=== PATIENT | male | born 1995 | race African-American/Black ===

== ENCOUNTER 2018-04-05 11:35 | Inpatient (IN) | payer OTHER ==
[2018-04-05 11:48] VITALS: BMI 25.6
--- NOTE | 2018-04-05 13:03 | HP ---
CIWA Score - Admission Criteria OASAS Guidelines: Admission for Medically Managed Detox: Requires at least one of the followin. CIWA greater than 12 2. Seizures within the past 24 hours 3. Delirium tremens within the past 24 hours 4. Hallucinations within the past 24 hours 5. Acute intervention needed for co occurring medical disorder 6. Acute intervention needed for co occurring psychiatric disorder 7. Severe withdrawal that cannot be handled at a lower level of care (continued vomiting, continued diarrhea, abnormal vital signs) requiring intravenous medication and/or fluids 8. Admission ROS S - HPI Chief Complaint: I feel like I'm messing up and want to go to rehab. Allergies/Adverse Reactions: Allergies Allergy/AdvReac Type Severity Reaction Status Date / Time No Known Allergies Allergy Verified 04/05/18 12:08 History of Present Illness: 23 year old male with h/o opiate, bzd, cocaine and MJ use disorders comes here requesting rehab. He was recently (01/21) in rehab at [facility] for 23 days. He was sent here because he's interested in alf residential and they informed him that he needs to see a psychiatrist in short term rehab and then be referred to alf residential. Currently not reporting any withdrawal symptoms. SUbstance Use History Opiates 20yo first, pills first then heroin at 21yo, IV/IN, 20-30 bags a day, last use 2 months ago Cocaine 20 yo first, IN/smoke, every other day, 1GM at a time, last use yesterday MJA 18yo first, daily smoker, 1gm a day, last use yesterday Bnzo 20 yo first, xanax 8mg a day, (detox for benzos in 01/2018), last use 2 weeks ago Xanax 8mg ETOH has not had a drink since he was 19yo when he almost from ETOH intoxication Tobacco 1PPD Methadone program 120mg a day since summer 2017, [facility], was given a dose today and a bottle for tomorrow. He can't produce the bottle that is for tomorrow. Highly suspect that he sold it before coming here. Treatment History Inpatient detox: 5x or more Rehab: One other time at [facility] Mental Health History Diagnosed with depression/anxiety Reports being on Depakote, Seroquel, Risperdal, buspar, remeron at night SocHx; Lives with is parents in [place] Single, no kids, multiple director of strategic partnerships jobs Exam Limitations: No Limitations - Ebola screening Have you traveled outside of the country in the last 21 days: No Have you had contact with anyone from an Ebola affected area: No Have you been sick,other than usual withdrawal symptoms: No Do you have a fever: No Patient History - Patient Medical History Hx Anemia: No Hx Asthma: No Hx Chronic Obstructive Pulmonary Disease (COPD): No Hx Cancer: No Hx Cardiac Disorders: No Hx Congestive Heart Failure: No Hx Hypertension: No Hx Hypercholesterolemia: No Hx Pacemaker: No HX Cerebrovascular Accident: No Hx Seizures: No Hx Dementia: No Hx Diabetes: No Hx Gastrointestinal Disorders: No Hx Liver Disease: No Hx Genitourinary Disorders: No Hx Sexually Transmitted Disorders: No Hx Renal Disease (ESRD): No Hx Thyroid Disease: No Hx Human Immunodeficiency Virus (HIV): No Hx Hepatitis C: No Hx Depression: Yes (Diagnosed with anxiety/depression) Hx Suicide Attempt: No Hx Bipolar Disorder: No Hx Schizophrenia: No - Smoking Cessation Smoking history: Current every day smoker Have you smoked in the past 12 months: Yes Aproximately how many cigarettes per day: 20 Hx Chewing Tobacco Use: No Initiated information on smoking cessation: Yes 'Breaking Loose' booklet given: 04/05/18 - Substances Abused Alprazolam (Xanax) Route: Oral (See full substance use history in HPI) Frequency: Daily Amount used: 2-3 pills (2mg each) Age of first use: 20 Date of Last Use: 03/15/18 Marijuana/Hashish Route: Smoking Frequency: Daily Amount used: 1 gram -2 gram Age of first use: 18 Date of Last Use: 04/04/18 Cocaine Route: Smoking Frequency: 3-6 times per week Amount used: 1 gram Age of first use: 20 Date of Last Use: 04/04/18 Family Disease History - Family Disease History Family History: Denies Admission Physical Exam S - Vital Signs Vital Signs: Vital Signs - 24 hr 04/05/18 11:44 Temperature 98.1 F Pulse Rate 83 Respiratory 18 Rate Blood Pressure 113/61 - Physical General Appearance: Yes: Within Normal Limits HEENTM: Yes: Within Normal Limits Respiratory: Yes: Within Normal Limits Cardiology: Yes: Within Normal Limits Abdominal: Yes: Within Normal Limits Extremities: Yes: Within Normal Limits Neurological: Yes: Within Normal Limits, Fully Oriented, Alert Integumentary: Yes: Within Normal Limits [facility] Breath Alcohol Content Breath Alcohol Content: 0 Urine Drug Screen - Results Drug Screen Negative: No Urine Drug Screen Results: THC-Marijuana, DEANDRE-Cocaine, MTD-Methadone Inpatient Rehab Admission - Initial Determination Are CD services needed?: Yes Free of communicable disease: Yes Not in need of hospitalization: Yes - Rehab Admission Criteria Previous failed treatment: Yes Poor recovery environment: Yes Comorbidities: Yes Lacks judgement: No Patient is meeting Inpatient Rehab admission criteria:: Yes
[2018-04-05] MEDS ORDERED: MAG HYDROX/AL HYDROX/SIMETH 30 ML UNIT-DOSE CUP PO PRN (13:49)
[2018-04-05] MEDS ORDERED: MAGNESIUM HYDROX 2400MG/30ML ORAL SUSPENSION 30 ML CUP PO PRN (13:49)
[2018-04-05] MEDS ORDERED: P-EPHED 60MG/TRIPROLIDI 2.5MG TABLET PO PRN (13:49)
[2018-04-05] MEDS ORDERED: MAGNESIUM CITRATE 300 ML BOTTLE PO PRN (13:49)
[2018-04-05] MEDS ORDERED: MENTHOL/PHENOL 1 EACH UD MM PRN (13:49)
[2018-04-05] MEDS ORDERED: hydrOXYzine PAMOATE 50 MG CAPSULE (FP) PO PRN (13:49)
[2018-04-05] MEDS ORDERED: guaiFENesin/D-METHORPHAN HB 10 ML UNIT-DOSE CUPS PO PRN (13:49)
[2018-04-05] MEDS ORDERED: LOPERAMIDE HCL 2 MG CAPSULE PO PRN (13:49)
[2018-04-05] MEDS ORDERED: RANITIDINE HCL 75 MG PO PRN (13:51)
[2018-04-05] MEDS: QUEtiapine FUMARATE 50 MG TABLET PO SCH (16:54)
[2018-04-05] MEDS: risperiDONE 2 MG TABLET PO SCH (21:17)
[2018-04-05] MEDS: MIRTAZAPINE 15 MG TABLET (FP) PO SCH (21:17)
[2018-04-05] MEDS: DIVALPROEX SODIUM 500 MG TABLET E.C. PO SCH (21:17)
[2018-04-05] MEDS: QUEtiapine FUMARATE 100 MG TABLET (FP) PO SCH (21:17)
[2018-04-05] MEDS: RANITIDINE HCL 150 MG TABLET (FP) PO SCH (21:17)
[2018-04-05] MEDS: THIAMINE HCL 100 MG TABLET (FP) PO SCH (21:17)
[2018-04-05 23:30] LABS: URINE APPEARANCE CLEAR; URINE BILIRUBIN NEGATIVE (<2.0 mg/dL); URINE COLOR STRAW; URINE GLUCOSE (UA) NEGATIVE (NEGATIVE); URINE KETONE NEGATIVE (NEGATIVE); URINE LEUK ESTERASE NEGATIVE (NEGATIVE); URINE NITRITE NEGATIVE (NEGATIVE); URINE PROTEIN NEGATIVE (NEGATIVE); URINE UROBILINOGEN NEGATIVE mg/dL (0.2-1.0)
--- NOTE | 2018-04-06 08:51 | HP ---
Psychiatrist Admission - Data Date of interview: 04/06/18 Admission source: [facility] Identifying data: Patient is a 23 year old single male, without children, unemployed, resides with family, and is supported by family. This is patient's first admission to rehab at [facility]. Patient admitted to for benzodizaepine dependence. Medical History: Denies. Endorses good health. Psychiatric History: Patient's first psychiatric contact was at 20 years of age at [facility] detox unit. He seeked detox secondary to his opioid dependence. He was seen by a psychiatrist and was ordered sleep aid. Patient's reports one psychiatric hospitalization at a hospital in [place], [place]. He was seeking detox and was overheard on the phone telling his dad " you will not see me until the day I ." After making that statment he was seen by psychiatry and admitted to the psychiatric unit for one day. In january of 2018 he was admitted to the rehab at [facility] and reports being diagnosed with depression and anxiety??(questionable historian). Patient reports h/o parania and auditory hallucinations when under the influence of substances. He denies psychotic symptoms when not using illicit drugs. Patient's current medication regiman of Risperdal 2 daily + 4mg HS + Seroquel 50mg BID (10:00 +17:00) + 100mg QHS + Remeron 15mg + Buspar 15mg BID + Depakote 500mg BID + were started while in rehab at [facility] in 2017 and is now managed at the [facility] Methadone program. States he is currently on 120mg of methadone daily. Patient denies h/o suicide attempt. At present, he reports stable mood. No psychosis, manic or depressive symptoms noted. Physical/Sexual Abuse/Trauma History: Denies. Vital Signs: Vital Signs - 24 hr 04/05/18 04/06/18 04/06/18 11:44 00:30 03:30 Temperature 98.1 F Pulse Rate 83 Respiratory 18 18 18 Rate Blood Pressure 113/61 04/06/18 06:54 Temperature 97.7 F Pulse Rate 70 Respiratory 18 Rate Blood Pressure 113/60 Allergies/Adverse Reactions: Allergies Allergy/AdvReac Type Severity Reaction Status Date / Time No Known Allergies Allergy Verified 04/05/18 12:08 Date of last physical exam: 04/05/18 Concur with the findings of this exam: Yes - Substance Abuse/Tx History Hx Alcohol Use: No Hx Substance Use: Yes (Benzos- xanax- 6-8 mg daily) Hx Substance Use Treatment: Yes ([facility] rehab in 2018) Mental Status Exam - Mental Status Exam Alert and Oriented to: Time, Place, Person Cognitive Function: Good Patient Appearance: Well Groomed Mood: Euthymic Affect: Appropriate Patient Behavior: Appropriate, Cooperative Speech Pattern: Clear, Appropriate Voice Loudness: Normal Thought Process: Intact, Goal Oriented Hallucinations: Denies Suicidal Ideation: Denies Homicidal Ideation: Denies Insight/Judgement: Poor Sleep: Fair Appetite: Fair Muscle strength/Tone: Normal Gait/Station: Normal Psychiatric Findings - Problem List ([place] 1, 2,3) (1) Marijuana dependence Current Visit: Yes Status: Chronic (2) Cocaine dependence Current Visit: Yes Status: Chronic (3) Schizo affective schizophrenia Current Visit: Yes Status: Suspected (4) Mood disorder Current Visit: Yes Status: Chronic (5) Opioid dependence Current Visit: Yes Status: Chronic - Initial Treatment Plan Initial Treatment Plan: Psychoeducation provided. Rehab in progress. Will continue current medications ordered by Dr. Davidson.
[2018-04-06] MEDS: NICOTINE 21 MG/24 HOURS TOPICAL PATCH TD SCH (10:25)
[2018-04-06] MEDS: PRENATAL VITAMINS W/ FOLIC ACID TABLET (FP) PO SCH (10:25)
[2018-04-06] MEDS: DIVALPROEX SODIUM 500 MG TABLET E.C. PO SCH ×2 (10:25→21:18)
[2018-04-06] MEDS: QUEtiapine FUMARATE 50 MG TABLET PO SCH ×2 (10:26→17:02)
[2018-04-06] MEDS: risperiDONE 2 MG TABLET PO SCH ×2 (10:26→21:19)
[2018-04-06 11:08] LABS: HEMATOCRIT 40.1 % (35.4-49); HEMOGLOBIN 12.7 GM/dL (11.7-16.9); MCH 26.7 pg (25.7-33.7); MCHC 31.7 g/dl (32.0-35.9); MEAN CELL VOLUME 84.4 fl (80-96); MEAN PLT VOLUME 9.8 fl (7.5-11.1); PLATELET COUNT 185 K/MM3 (134-434); RBC 4.75 M/mm3 (4.00-5.60); RDW 13.6 % (11.9-15.9); WHITE BLOOD COUNT 4.8 K/mm3 (4.0-10.0)
[2018-04-06 11:22] LABS: ALBUMIN 3.6 g/dl (3.4-5.0); ALK PHOS 87 U/L (45-117); ANION GAP 6 MMOL/L (8-16); BILIRUBIN,TOTAL 0.3 mg/dL (0.2-1); BLOOD UREA NITROGEN 10 mg/dL (7-18); CALCIUM 8.9 mg/dL (8.5-10.1); CHLORIDE 102 mmol/L (98-107); CO2 33 mmol/L (21-32); CREATININE 0.8 mg/dL (0.55-1.3); GLUCOSE,RANDOM 85 mg/dL (74-106); SGOT/AST 20 U/L (15-37); SGPT/ALT 27 U/L (13-61); SODIUM 141 mmol/L (136-145); TOT PROT 6.7 g/dl (6.4-8.2)
[2018-04-06] MEDS: IBUPROFEN 400 MG TABLET (FP) PO PRN (18:00)
[2018-04-06] MEDS: MIRTAZAPINE 15 MG TABLET (FP) PO SCH (21:18)
[2018-04-06] MEDS: ACETAMINOPHEN 325 MG TABLET (FP) PO PRN (21:18)
[2018-04-06] MEDS: QUEtiapine FUMARATE 100 MG TABLET (FP) PO SCH (21:19)
[2018-04-06] MEDS: THIAMINE HCL 100 MG TABLET (FP) PO SCH (21:19)
[2018-04-06] MEDS: RANITIDINE HCL 150 MG TABLET (FP) PO SCH (21:19)
[2018-04-07] MEDS: IBUPROFEN 400 MG TABLET (FP) PO PRN ×3 (06:29→18:47)
[2018-04-07] MEDS ORDERED: METHADONE HCL 40 MG DISPERSABLE TABLET ONE (06:49)
[2018-04-07] MEDS: METHADONE HCL 40 MG DISPERSABLE TABLET PO SCH (06:51)
[2018-04-07] MEDS: PRENATAL VITAMINS W/ FOLIC ACID TABLET (FP) PO SCH (09:39)
[2018-04-07] MEDS: DIVALPROEX SODIUM 500 MG TABLET E.C. PO SCH ×2 (09:39→21:09)
[2018-04-07] MEDS: NICOTINE 21 MG/24 HOURS TOPICAL PATCH TD SCH (09:39)
[2018-04-07] MEDS: QUEtiapine FUMARATE 50 MG TABLET PO SCH ×2 (09:40→16:48)
[2018-04-07] MEDS: NICOTINE POLACRILEX 4 MG GUM BUC PRN ×2 (09:40→21:46)
[2018-04-07] MEDS: risperiDONE 2 MG TABLET PO SCH ×2 (09:40→21:08)
[2018-04-07] MEDS: ACETAMINOPHEN 325 MG TABLET (FP) PO PRN ×2 (09:42→14:07)
[2018-04-07] MEDS ORDERED: ONDANSETRON *ODT* 4 MG TABLET SL PRN (14:58)
[2018-04-07] MEDS: BENZOCAINE 20 % GEL TUBE MM PRN (19:01)
[2018-04-07] MEDS: QUEtiapine FUMARATE 100 MG TABLET (FP) PO SCH (21:08)
[2018-04-07] MEDS: MIRTAZAPINE 15 MG TABLET (FP) PO SCH (21:08)
[2018-04-07] MEDS: THIAMINE HCL 100 MG TABLET (FP) PO SCH (21:08)
[2018-04-07] MEDS: RANITIDINE HCL 150 MG TABLET (FP) PO SCH (21:09)
[2018-04-07] MEDS ORDERED: SUVOREXANT 10 MG TABLET PO PRN (22:00)
[2018-04-08] MEDS: METHADONE HCL 40 MG DISPERSABLE TABLET PO SCH (06:32)
[2018-04-08] MEDS: NICOTINE 21 MG/24 HOURS TOPICAL PATCH TD SCH (10:00)
[2018-04-08] MEDS: PRENATAL VITAMINS W/ FOLIC ACID TABLET (FP) PO SCH (10:00)
[2018-04-08] MEDS: QUEtiapine FUMARATE 50 MG TABLET PO SCH ×2 (10:00→16:41)
[2018-04-08] MEDS: DIVALPROEX SODIUM 500 MG TABLET E.C. PO SCH ×2 (10:00→21:09)
[2018-04-08] MEDS: risperiDONE 2 MG TABLET PO SCH ×2 (10:00→21:09)
[2018-04-08] MEDS: BENZOCAINE 20 % GEL TUBE MM PRN (10:01)
[2018-04-08] MEDS: RANITIDINE HCL 150 MG TABLET (FP) PO SCH (21:09)
[2018-04-08] MEDS: THIAMINE HCL 100 MG TABLET (FP) PO SCH (21:09)
[2018-04-08] MEDS: MIRTAZAPINE 15 MG TABLET (FP) PO SCH (21:10)
[2018-04-08] MEDS: MELATONIN 5 MG TABLETS PO PRN (21:10)
[2018-04-08] MEDS: QUEtiapine FUMARATE 100 MG TABLET (FP) PO SCH (21:10)
[2018-04-09] MEDS: METHADONE HCL 40 MG DISPERSABLE TABLET PO SCH (06:17)
[2018-04-09] MEDS: IBUPROFEN 400 MG TABLET (FP) PO PRN (08:39)
[2018-04-09] MEDS: DIVALPROEX SODIUM 500 MG TABLET E.C. PO SCH ×2 (09:43→21:18)
[2018-04-09] MEDS: QUEtiapine FUMARATE 50 MG TABLET PO SCH ×2 (09:43→16:53)
[2018-04-09] MEDS: risperiDONE 2 MG TABLET PO SCH ×2 (09:43→21:18)
[2018-04-09] MEDS: hydrOXYzine PAMOATE 50 MG CAPSULE (FP) PO PRN ×2 (09:43→21:18)
[2018-04-09] MEDS: NICOTINE 14 MG/24 HOURS TOPICAL PATCH TD SCH (09:43)
[2018-04-09] MEDS: PRENATAL VITAMINS W/ FOLIC ACID TABLET (FP) PO SCH (09:43)
--- NOTE | 2018-04-09 14:26 | PN ---
[facility] Progress Note Note: Pt c/o rash in legs and scrotal area, no itching, no pain, no redness.. PE: Vital Signs - 24 hr 04/09/18 04/09/18 00:30 06:31 Temperature 98.0 F Pulse Rate 96 H Respiratory 18 18 Rate Blood Pressure 100/59 L 2 hypopigmented maculo-papular nodules noted on scrotum, no redness, pain a/p: non specific "rash" aveeno soap, f/u if increase in rash, or other Sx
[2018-04-09] MEDS ORDERED: COLLOIDAL OATMEAL 1 BAR EACH TP PRN (14:32)
[2018-04-09] MEDS: THIAMINE HCL 100 MG TABLET (FP) PO SCH (21:17)
[2018-04-09] MEDS: MELATONIN 5 MG TABLETS PO PRN (21:17)
[2018-04-09] MEDS: MIRTAZAPINE 15 MG TABLET (FP) PO SCH (21:18)
[2018-04-09] MEDS: QUEtiapine FUMARATE 100 MG TABLET (FP) PO SCH (21:18)
[2018-04-09] MEDS: RANITIDINE HCL 150 MG TABLET (FP) PO SCH (21:18)
[2018-04-10] MEDS: METHADONE HCL 40 MG DISPERSABLE TABLET PO SCH (06:31)
[2018-04-10] MEDS: NICOTINE 14 MG/24 HOURS TOPICAL PATCH TD SCH (10:02)
[2018-04-10] MEDS: PRENATAL VITAMINS W/ FOLIC ACID TABLET (FP) PO SCH (10:03)
[2018-04-10] MEDS: QUEtiapine FUMARATE 50 MG TABLET PO SCH ×2 (10:03→16:51)
[2018-04-10] MEDS: DIVALPROEX SODIUM 500 MG TABLET E.C. PO SCH ×2 (10:03→21:13)
[2018-04-10] MEDS: risperiDONE 2 MG TABLET PO SCH ×2 (10:03→21:13)
[2018-04-10] MEDS: IBUPROFEN 400 MG TABLET (FP) PO PRN ×2 (10:17→16:52)
[2018-04-10] MEDS: BENZOCAINE 20 % GEL TUBE MM PRN (10:19)
[2018-04-10] MEDS: hydrOXYzine PAMOATE 50 MG CAPSULE (FP) PO PRN (21:13)
[2018-04-10] MEDS: RANITIDINE HCL 150 MG TABLET (FP) PO SCH (21:13)
[2018-04-10] MEDS: THIAMINE HCL 100 MG TABLET (FP) PO SCH (21:13)
[2018-04-10] MEDS: MIRTAZAPINE 15 MG TABLET (FP) PO SCH (21:13)
[2018-04-10] MEDS: QUEtiapine FUMARATE 100 MG TABLET (FP) PO SCH (21:51)
[2018-04-11] MEDS: METHADONE HCL 40 MG DISPERSABLE TABLET PO SCH (06:11)
[2018-04-11] MEDS: risperiDONE 2 MG TABLET PO SCH ×2 (10:52→21:01)
[2018-04-11] MEDS: NICOTINE 14 MG/24 HOURS TOPICAL PATCH TD SCH (10:52)
[2018-04-11] MEDS: QUEtiapine FUMARATE 50 MG TABLET PO SCH ×2 (10:52→16:52)
[2018-04-11] MEDS: PRENATAL VITAMINS W/ FOLIC ACID TABLET (FP) PO SCH (10:52)
[2018-04-11] MEDS: DIVALPROEX SODIUM 500 MG TABLET E.C. PO SCH ×2 (10:52→21:01)
[2018-04-11] MEDS: THIAMINE HCL 100 MG TABLET (FP) PO SCH (21:01)
[2018-04-11] MEDS: QUEtiapine FUMARATE 100 MG TABLET (FP) PO SCH (21:02)
[2018-04-11] MEDS: hydrOXYzine PAMOATE 50 MG CAPSULE (FP) PO PRN (21:02)
[2018-04-11] MEDS: MIRTAZAPINE 15 MG TABLET (FP) PO SCH (21:02)
[2018-04-11] MEDS: SUVOREXANT 10 MG TABLET PO PRN (21:02)
[2018-04-11] MEDS: RANITIDINE HCL 150 MG TABLET (FP) PO SCH (21:02)
[2018-04-12] MEDS: METHADONE HCL 40 MG DISPERSABLE TABLET PO SCH (06:16)
[2018-04-12] MEDS: DIVALPROEX SODIUM 500 MG TABLET E.C. PO SCH ×2 (09:32→21:11)
[2018-04-12] MEDS: PRENATAL VITAMINS W/ FOLIC ACID TABLET (FP) PO SCH (09:32)
[2018-04-12] MEDS: NICOTINE 14 MG/24 HOURS TOPICAL PATCH TD SCH (09:32)
[2018-04-12] MEDS: risperiDONE 2 MG TABLET PO SCH ×2 (09:33→21:11)
[2018-04-12] MEDS: QUEtiapine FUMARATE 50 MG TABLET PO SCH ×2 (09:33→16:49)
[2018-04-12] MEDS: NICOTINE POLACRILEX 4 MG GUM BUC PRN (16:23)
[2018-04-12] MEDS: hydrOXYzine PAMOATE 50 MG CAPSULE (FP) PO PRN (16:48)
[2018-04-12] MEDS: THIAMINE HCL 100 MG TABLET (FP) PO SCH (21:10)
[2018-04-12] MEDS: RANITIDINE HCL 150 MG TABLET (FP) PO SCH (21:10)
[2018-04-12] MEDS: MIRTAZAPINE 15 MG TABLET (FP) PO SCH (21:10)
[2018-04-12] MEDS: SUVOREXANT 10 MG TABLET PO PRN (21:11)
[2018-04-12] MEDS: QUEtiapine FUMARATE 100 MG TABLET (FP) PO SCH (21:11)
[2018-04-13] MEDS: METHADONE HCL 40 MG DISPERSABLE TABLET PO SCH (07:15)
[2018-04-13] MEDS: NICOTINE 14 MG/24 HOURS TOPICAL PATCH TD SCH (10:12)
[2018-04-13] MEDS: QUEtiapine FUMARATE 50 MG TABLET PO SCH ×2 (10:13→16:47)
[2018-04-13] MEDS: DIVALPROEX SODIUM 500 MG TABLET E.C. PO SCH ×2 (10:13→21:13)
[2018-04-13] MEDS: risperiDONE 2 MG TABLET PO SCH ×2 (10:13→21:13)
[2018-04-13] MEDS: PRENATAL VITAMINS W/ FOLIC ACID TABLET (FP) PO SCH (10:13)
[2018-04-13] MEDS: hydrOXYzine PAMOATE 50 MG CAPSULE (FP) PO PRN (16:48)
[2018-04-13] MEDS: THIAMINE HCL 100 MG TABLET (FP) PO SCH (21:12)
[2018-04-13] MEDS: MIRTAZAPINE 15 MG TABLET (FP) PO SCH (21:13)
[2018-04-13] MEDS: QUEtiapine FUMARATE 100 MG TABLET (FP) PO SCH (21:13)
[2018-04-13] MEDS: RANITIDINE HCL 150 MG TABLET (FP) PO SCH (21:13)
[2018-04-13] MEDS: SUVOREXANT 10 MG TABLET PO PRN (21:14)
[2018-04-14] MEDS: risperiDONE 2 MG TABLET PO SCH ×2 (09:46→21:55)
[2018-04-14] MEDS: NICOTINE 14 MG/24 HOURS TOPICAL PATCH TD SCH (09:46)
[2018-04-14] MEDS: PRENATAL VITAMINS W/ FOLIC ACID TABLET (FP) PO SCH (09:47)
[2018-04-14] MEDS: METHADONE HCL 40 MG DISPERSABLE TABLET PO SCH (09:47)
[2018-04-14] MEDS: QUEtiapine FUMARATE 50 MG TABLET PO SCH ×2 (09:47→16:46)
[2018-04-14] MEDS: DIVALPROEX SODIUM 500 MG TABLET E.C. PO SCH ×2 (09:47→21:55)
[2018-04-14] MEDS: MIRTAZAPINE 15 MG TABLET (FP) PO SCH (21:55)
[2018-04-14] MEDS: QUEtiapine FUMARATE 100 MG TABLET (FP) PO SCH (21:55)
[2018-04-14] MEDS: SUVOREXANT 10 MG TABLET PO PRN (21:55)
[2018-04-14] MEDS: THIAMINE HCL 100 MG TABLET (FP) PO SCH (21:55)
[2018-04-14] MEDS: hydrOXYzine PAMOATE 50 MG CAPSULE (FP) PO PRN (21:56)
[2018-04-14] MEDS: RANITIDINE HCL 150 MG TABLET (FP) PO SCH (21:56)
[2018-04-15] MEDS: PRENATAL VITAMINS W/ FOLIC ACID TABLET (FP) PO SCH (10:19)
[2018-04-15] MEDS: QUEtiapine FUMARATE 50 MG TABLET PO SCH ×2 (10:19→16:51)
[2018-04-15] MEDS: DIVALPROEX SODIUM 500 MG TABLET E.C. PO SCH ×2 (10:19→21:33)
[2018-04-15] MEDS: NICOTINE 14 MG/24 HOURS TOPICAL PATCH TD SCH (10:19)
[2018-04-15] MEDS: risperiDONE 2 MG TABLET PO SCH ×2 (10:19→21:33)
[2018-04-15] MEDS: METHADONE HCL 40 MG DISPERSABLE TABLET PO SCH (10:20)
[2018-04-15] MEDS: RANITIDINE HCL 150 MG TABLET (FP) PO SCH (21:33)
[2018-04-15] MEDS: QUEtiapine FUMARATE 100 MG TABLET (FP) PO SCH (21:33)
[2018-04-15] MEDS: hydrOXYzine PAMOATE 50 MG CAPSULE (FP) PO PRN (21:33)
[2018-04-15] MEDS: SUVOREXANT 10 MG TABLET PO PRN (21:33)
[2018-04-15] MEDS: MIRTAZAPINE 15 MG TABLET (FP) PO SCH (21:33)
[2018-04-15] MEDS: THIAMINE HCL 100 MG TABLET (FP) PO SCH (21:33)
[2018-04-15] MEDS: IBUPROFEN 400 MG TABLET (FP) PO PRN (21:45)
[2018-04-16] MEDS: NICOTINE 14 MG/24 HOURS TOPICAL PATCH TD SCH (10:00)
[2018-04-16] MEDS: risperiDONE 2 MG TABLET PO SCH ×2 (10:01→21:34)
[2018-04-16] MEDS: METHADONE HCL 40 MG DISPERSABLE TABLET PO SCH (10:02)
[2018-04-16] MEDS: QUEtiapine FUMARATE 50 MG TABLET PO SCH ×2 (10:02→16:55)
[2018-04-16] MEDS: DIVALPROEX SODIUM 500 MG TABLET E.C. PO SCH ×2 (10:02→21:37)
[2018-04-16] MEDS: PRENATAL VITAMINS W/ FOLIC ACID TABLET (FP) PO SCH (10:02)
[2018-04-16] MEDS: IBUPROFEN 400 MG TABLET (FP) PO PRN (15:01)
[2018-04-16] MEDS: QUEtiapine FUMARATE 100 MG TABLET (FP) PO SCH (21:35)
[2018-04-16] MEDS: hydrOXYzine PAMOATE 50 MG CAPSULE (FP) PO PRN (21:35)
[2018-04-16] MEDS: RANITIDINE HCL 150 MG TABLET (FP) PO SCH (21:35)
[2018-04-16] MEDS: IBUPROFEN 600 MG TABLET (FP) PO PRN (21:35)
[2018-04-16] MEDS: SUVOREXANT 10 MG TABLET PO PRN (21:35)
[2018-04-16] MEDS: MIRTAZAPINE 15 MG TABLET (FP) PO SCH (21:36)
[2018-04-16] MEDS: THIAMINE HCL 100 MG TABLET (FP) PO SCH (21:37)
[2018-04-16] MEDS ORDERED: SUVOREXANT 10 MG TABLET PO PRN (22:00)
[2018-04-17] MEDS: risperiDONE 2 MG TABLET PO SCH ×2 (09:34→21:32)
[2018-04-17] MEDS: PRENATAL VITAMINS W/ FOLIC ACID TABLET (FP) PO SCH (09:34)
[2018-04-17] MEDS: NICOTINE 14 MG/24 HOURS TOPICAL PATCH TD SCH (09:34)
[2018-04-17] MEDS: DIVALPROEX SODIUM 500 MG TABLET E.C. PO SCH ×2 (09:34→21:32)
[2018-04-17] MEDS: METHADONE HCL 40 MG DISPERSABLE TABLET PO SCH (09:34)
[2018-04-17] MEDS: QUEtiapine FUMARATE 50 MG TABLET PO SCH ×2 (09:34→18:03)
[2018-04-17] MEDS: IBUPROFEN 600 MG TABLET (FP) PO PRN (13:08)
[2018-04-17] MEDS: MIRTAZAPINE 15 MG TABLET (FP) PO SCH (21:32)
[2018-04-17] MEDS: SUVOREXANT 10 MG TABLET PO PRN (21:32)
[2018-04-17] MEDS: THIAMINE HCL 100 MG TABLET (FP) PO SCH (21:33)
[2018-04-17] MEDS: RANITIDINE HCL 150 MG TABLET (FP) PO SCH (21:33)
[2018-04-17] MEDS: QUEtiapine FUMARATE 100 MG TABLET (FP) PO SCH (21:33)
[2018-04-18] MEDS: NICOTINE 14 MG/24 HOURS TOPICAL PATCH TD SCH (09:44)
[2018-04-18] MEDS: QUEtiapine FUMARATE 50 MG TABLET PO SCH ×2 (09:44→17:44)
[2018-04-18] MEDS: DIVALPROEX SODIUM 500 MG TABLET E.C. PO SCH ×2 (09:44→21:05)
[2018-04-18] MEDS: risperiDONE 2 MG TABLET PO SCH ×2 (09:44→21:04)
[2018-04-18] MEDS: PRENATAL VITAMINS W/ FOLIC ACID TABLET (FP) PO SCH (09:45)
[2018-04-18] MEDS: METHADONE HCL 40 MG DISPERSABLE TABLET PO SCH (09:45)
[2018-04-18] MEDS: MIRTAZAPINE 15 MG TABLET (FP) PO SCH (21:04)
[2018-04-18] MEDS: THIAMINE HCL 100 MG TABLET (FP) PO SCH (21:04)
[2018-04-18] MEDS: QUEtiapine FUMARATE 100 MG TABLET (FP) PO SCH (21:04)
[2018-04-18] MEDS: RANITIDINE HCL 150 MG TABLET (FP) PO SCH (21:05)
[2018-04-18] MEDS: SUVOREXANT 10 MG TABLET PO PRN (21:06)
[2018-04-19] MEDS: METHADONE HCL 40 MG DISPERSABLE TABLET PO SCH (09:46)
[2018-04-19] MEDS: NICOTINE 14 MG/24 HOURS TOPICAL PATCH TD SCH (09:46)
[2018-04-19] MEDS: DIVALPROEX SODIUM 500 MG TABLET E.C. PO SCH ×2 (09:47→21:19)
[2018-04-19] MEDS: QUEtiapine FUMARATE 50 MG TABLET PO SCH ×2 (09:47→16:42)
[2018-04-19] MEDS: risperiDONE 2 MG TABLET PO SCH ×2 (09:47→21:19)
[2018-04-19] MEDS: PRENATAL VITAMINS W/ FOLIC ACID TABLET (FP) PO SCH (09:47)
[2018-04-19] MEDS: RANITIDINE HCL 150 MG TABLET (FP) PO SCH (21:19)
[2018-04-19] MEDS: THIAMINE HCL 100 MG TABLET (FP) PO SCH (21:19)
[2018-04-19] MEDS: QUEtiapine FUMARATE 100 MG TABLET (FP) PO SCH (21:19)
[2018-04-19] MEDS: MIRTAZAPINE 15 MG TABLET (FP) PO SCH (21:19)
[2018-04-19] MEDS: SUVOREXANT 10 MG TABLET PO PRN (21:20)
[2018-04-20] MEDS: QUEtiapine FUMARATE 50 MG TABLET PO SCH ×2 (09:41→16:35)
[2018-04-20] MEDS: DIVALPROEX SODIUM 500 MG TABLET E.C. PO SCH ×2 (09:41→21:26)
[2018-04-20] MEDS: NICOTINE 14 MG/24 HOURS TOPICAL PATCH TD SCH (09:41)
[2018-04-20] MEDS: PRENATAL VITAMINS W/ FOLIC ACID TABLET (FP) PO SCH (09:41)
[2018-04-20] MEDS: risperiDONE 2 MG TABLET PO SCH ×2 (09:41→21:26)
[2018-04-20] MEDS: METHADONE HCL 40 MG DISPERSABLE TABLET PO SCH (09:42)
[2018-04-20] MEDS: NICOTINE POLACRILEX 4 MG GUM BUC PRN (13:20)
[2018-04-20] MEDS: RANITIDINE HCL 150 MG TABLET (FP) PO SCH (21:26)
[2018-04-20] MEDS: hydrOXYzine PAMOATE 50 MG CAPSULE (FP) PO PRN (21:26)
[2018-04-20] MEDS: SUVOREXANT 10 MG TABLET PO PRN (21:26)
[2018-04-20] MEDS: QUEtiapine FUMARATE 100 MG TABLET (FP) PO SCH (21:26)
[2018-04-20] MEDS: THIAMINE HCL 100 MG TABLET (FP) PO SCH (21:26)
[2018-04-20] MEDS: MIRTAZAPINE 15 MG TABLET (FP) PO SCH (21:26)
[2018-04-21] MEDS: DIVALPROEX SODIUM 500 MG TABLET E.C. PO SCH ×2 (09:37→21:27)
[2018-04-21] MEDS: NICOTINE 14 MG/24 HOURS TOPICAL PATCH TD SCH (09:37)
[2018-04-21] MEDS: PRENATAL VITAMINS W/ FOLIC ACID TABLET (FP) PO SCH (09:37)
[2018-04-21] MEDS: QUEtiapine FUMARATE 50 MG TABLET PO SCH ×2 (09:37→16:38)
[2018-04-21] MEDS: risperiDONE 2 MG TABLET PO SCH ×2 (09:37→21:27)
[2018-04-21] MEDS: METHADONE HCL 40 MG DISPERSABLE TABLET PO SCH (09:37)
[2018-04-21] MEDS: IBUPROFEN 600 MG TABLET (FP) PO PRN (16:38)
[2018-04-21] MEDS: SUVOREXANT 10 MG TABLET PO PRN (21:27)
[2018-04-21] MEDS: THIAMINE HCL 100 MG TABLET (FP) PO SCH (21:27)
[2018-04-21] MEDS: hydrOXYzine PAMOATE 50 MG CAPSULE (FP) PO PRN (21:27)
[2018-04-21] MEDS: QUEtiapine FUMARATE 100 MG TABLET (FP) PO SCH (21:27)
[2018-04-21] MEDS: MIRTAZAPINE 15 MG TABLET (FP) PO SCH (21:27)
[2018-04-21] MEDS: RANITIDINE HCL 150 MG TABLET (FP) PO SCH (21:27)
[2018-04-22] MEDS: risperiDONE 2 MG TABLET PO SCH ×2 (09:45→21:15)
[2018-04-22] MEDS: NICOTINE 14 MG/24 HOURS TOPICAL PATCH TD SCH (09:45)
[2018-04-22] MEDS: DIVALPROEX SODIUM 500 MG TABLET E.C. PO SCH ×2 (09:45→21:15)
[2018-04-22] MEDS: METHADONE HCL 40 MG DISPERSABLE TABLET PO SCH (09:45)
[2018-04-22] MEDS: PRENATAL VITAMINS W/ FOLIC ACID TABLET (FP) PO SCH (09:45)
[2018-04-22] MEDS: QUEtiapine FUMARATE 50 MG TABLET PO SCH ×2 (09:45→17:22)
[2018-04-22] MEDS: IBUPROFEN 600 MG TABLET (FP) PO PRN ×2 (14:35→18:22)
[2018-04-22] MEDS ORDERED: PT OWN MED DRAWER 7, Y5N ONE (14:36)
[2018-04-22] MEDS: BENZOCAINE 20 % GEL TUBE MM PRN (14:36)
[2018-04-22] MEDS: QUEtiapine FUMARATE 100 MG TABLET (FP) PO SCH (21:14)
[2018-04-22] MEDS: SUVOREXANT 10 MG TABLET PO PRN (21:14)
[2018-04-22] MEDS: RANITIDINE HCL 150 MG TABLET (FP) PO SCH (21:14)
[2018-04-22] MEDS: THIAMINE HCL 100 MG TABLET (FP) PO SCH (21:15)
[2018-04-22] MEDS: MIRTAZAPINE 15 MG TABLET (FP) PO SCH (21:15)
[2018-04-23] MEDS: NICOTINE 14 MG/24 HOURS TOPICAL PATCH TD SCH (10:39)
[2018-04-23] MEDS: risperiDONE 2 MG TABLET PO SCH ×2 (10:39→21:44)
[2018-04-23] MEDS: PRENATAL VITAMINS W/ FOLIC ACID TABLET (FP) PO SCH (10:39)
[2018-04-23] MEDS: METHADONE HCL 40 MG DISPERSABLE TABLET PO SCH (10:39)
[2018-04-23] MEDS: QUEtiapine FUMARATE 50 MG TABLET PO SCH ×2 (10:41→17:44)
[2018-04-23] MEDS: DIVALPROEX SODIUM 500 MG TABLET E.C. PO SCH ×2 (10:41→21:44)
[2018-04-23] MEDS: QUEtiapine FUMARATE 100 MG TABLET (FP) PO SCH (21:44)
[2018-04-23] MEDS: THIAMINE HCL 100 MG TABLET (FP) PO SCH (21:44)
[2018-04-23] MEDS: RANITIDINE HCL 150 MG TABLET (FP) PO SCH (21:44)
[2018-04-23] MEDS: MIRTAZAPINE 15 MG TABLET (FP) PO SCH (21:45)
[2018-04-23] MEDS: SUVOREXANT 10 MG TABLET PO PRN (21:47)
[2018-04-24] MEDS: DIVALPROEX SODIUM 500 MG TABLET E.C. PO SCH ×2 (10:25→21:38)
[2018-04-24] MEDS: QUEtiapine FUMARATE 50 MG TABLET PO SCH ×2 (10:25→16:57)
[2018-04-24] MEDS: METHADONE HCL 40 MG DISPERSABLE TABLET PO SCH (10:25)
[2018-04-24] MEDS: risperiDONE 2 MG TABLET PO SCH ×2 (10:25→21:38)
[2018-04-24] MEDS: NICOTINE 14 MG/24 HOURS TOPICAL PATCH TD SCH (10:25)
[2018-04-24] MEDS: PRENATAL VITAMINS W/ FOLIC ACID TABLET (FP) PO SCH (10:25)
[2018-04-24] MEDS: IBUPROFEN 600 MG TABLET (FP) PO PRN (11:52)
[2018-04-24] MEDS: MIRTAZAPINE 15 MG TABLET (FP) PO SCH (21:38)
[2018-04-24] MEDS: RANITIDINE HCL 150 MG TABLET (FP) PO SCH (21:38)
[2018-04-24] MEDS: THIAMINE HCL 100 MG TABLET (FP) PO SCH (21:38)
[2018-04-24] MEDS: SUVOREXANT 10 MG TABLET PO PRN (21:38)
[2018-04-24] MEDS: QUEtiapine FUMARATE 100 MG TABLET (FP) PO SCH (21:38)
[2018-04-24] MEDS: hydrOXYzine PAMOATE 50 MG CAPSULE (FP) PO PRN (21:39)
[2018-04-25] MEDS: risperiDONE 2 MG TABLET PO SCH ×2 (10:17→21:16)
[2018-04-25] MEDS: QUEtiapine FUMARATE 50 MG TABLET PO SCH ×2 (10:17→16:49)
[2018-04-25] MEDS: NICOTINE 14 MG/24 HOURS TOPICAL PATCH TD SCH (10:18)
[2018-04-25] MEDS: DIVALPROEX SODIUM 500 MG TABLET E.C. PO SCH ×2 (10:18→21:16)
[2018-04-25] MEDS: PRENATAL VITAMINS W/ FOLIC ACID TABLET (FP) PO SCH (10:18)
[2018-04-25] MEDS: METHADONE HCL 40 MG DISPERSABLE TABLET PO SCH (10:18)
[2018-04-25] MEDS ORDERED: PT OWN MED DRAWER 7, Y5N ONE (11:58)
[2018-04-25] MEDS: THIAMINE HCL 100 MG TABLET (FP) PO SCH (21:15)
[2018-04-25] MEDS: QUEtiapine FUMARATE 100 MG TABLET (FP) PO SCH (21:16)
[2018-04-25] MEDS: MIRTAZAPINE 15 MG TABLET (FP) PO SCH (21:16)
[2018-04-25] MEDS: hydrOXYzine PAMOATE 50 MG CAPSULE (FP) PO PRN (21:16)
[2018-04-25] MEDS: SUVOREXANT 10 MG TABLET PO PRN (21:16)
[2018-04-25] MEDS: RANITIDINE HCL 150 MG TABLET (FP) PO SCH (21:16)
--- NOTE | 2018-04-26 09:24 | PN ---
[facility] Progress Note Note: PATIENT SEEN FOR C/O TOOTHACHE AND REVIEW OF LABS. PATIENT IS ALERT AND ORIENTED X 3. DENIES FEVER, SORE THROAT COUGH AND EARACHE. Vital Signs Temperature 97.9 F 04/25/18 06:53 Pulse Rate 95 H 04/25/18 06:53 Respiratory Rate 16 04/26/18 03:30 Blood Pressure 125/60 04/25/18 06:53 O2 Sat by Pulse Oximetry (%) Laboratory Tests 04/05/18 04/06/18 04/06/18 14:32 07:30 07:30 WBC 4.8 RBC 4.75 Hgb 12.7 Hct 40.1 MCV 84.4 MCH 26.7 MCHC 31.7 L RDW 13.6 Plt Count 185 MPV 9.8 Sodium 141 Potassium 4.0 Chloride 102 Carbon Dioxide 33 H Anion Gap 6 L BUN 10 Creatinine 0.8 Creat Clearance w eGFR > 60 POC Glucometer Random Glucose 85 Calcium 8.9 Total Bilirubin 0.3 AST 20 ALT 27 Alkaline Phosphatase 87 Total Protein 6.7 Albumin 3.6 Urine Color Straw Urine Appearance Clear Urine pH 8.0 Ur Specific [place] 1.005 L Urine Protein Negative Urine Glucose (UA) Negative Urine Ketones Negative Urine Blood Negative Urine Nitrite Negative Urine Bilirubin Negative Urine Urobilinogen Negative Ur Leukocyte Esterase Negative RPR Titer HIV Note HIV 1&2 Antibody Screen HIV P24 Antigen 04/06/18 04/06/18 04/06/18 07:30 07:40 07:40 WBC RBC Hgb Hct MCV MCH MCHC RDW Plt Count MPV Sodium Potassium Chloride Carbon Dioxide Anion Gap BUN Creatinine Creat Clearance w eGFR POC Glucometer Random Glucose Calcium Total Bilirubin AST ALT Alkaline Phosphatase Total Protein Albumin Urine Color Urine Appearance Urine pH Ur Specific [place] Urine Protein Urine Glucose (UA) Urine Ketones Urine Blood Urine Nitrite Urine Bilirubin Urine Urobilinogen Ur Leukocyte Esterase RPR Titer Nonreactive HIV Note Non-reactive HIV 1&2 Antibody Screen Preliminary positive HIV P24 Antigen Negative 04/10/18 04/15/18 04/16/18 21:12 06:27 06:08 WBC RBC Hgb Hct MCV MCH MCHC RDW Plt Count MPV Sodium Potassium Chloride Carbon Dioxide Anion Gap BUN Creatinine Creat Clearance w eGFR POC Glucometer 130 97 90 Random Glucose Calcium Total Bilirubin AST ALT Alkaline Phosphatase Total Protein Albumin Urine Color Urine Appearance Urine pH Ur Specific [place] Urine Protein Urine Glucose (UA) Urine Ketones Urine Blood Urine Nitrite Urine Bilirubin Urine Urobilinogen Ur Leukocyte Esterase RPR Titer HIV Note HIV 1&2 Antibody Screen HIV P24 Antigen PE: ALERT AND ORIENTED X 3 SKIN WARM AND DRY MOUTH: + TOOTH DECAY AND RIGHT LOWER WISDOM TOOTH WITH MILD INFLAMMATION EXT FULL ROM, NO VISIBLE SWELLING AMB AD LONI A/P: TOOTHACHE: WILL CONTINUE ORAGEL NEEDED INCREASE IBUPROFEN TO 800MG EVERY 8 HRS PRN [facility] CALLED FOR HIV TEST RESULT PRELIMINARY HIV RESULT SHOWS POSITIVE ANTIBODIES FAX FROM [facility] SHOWS HIV SCREEN 4TH GENERATION WRFLX NONREACTIVE. CONVERSION DEVELOPER DISCUSSED CASE/RESULTS WITH DR. RAMOS. NO REFERRAL OR TREATMENT RECOMMENDED AT THIS TIME. MD RECOMMENDED PATIENT TO REPEAT TESTING IN 3 MONTHS WITH PCP. PATIENT INFORMED OF RECOMMENDATIONS AND AGREES WITH PLAN. PATIENT STATES HE WILL FOLLOW UP WITH PCP AND HAVE A REPEAT HIV TEST IN 2-3 MONTHS.
[2018-04-26] MEDS: NICOTINE 14 MG/24 HOURS TOPICAL PATCH TD SCH (09:47)
[2018-04-26] MEDS: risperiDONE 2 MG TABLET PO SCH ×2 (09:47→21:31)
[2018-04-26] MEDS: PRENATAL VITAMINS W/ FOLIC ACID TABLET (FP) PO SCH (09:47)
[2018-04-26] MEDS: METHADONE HCL 40 MG DISPERSABLE TABLET PO SCH (09:47)
[2018-04-26] MEDS: QUEtiapine FUMARATE 50 MG TABLET PO SCH ×2 (09:47→16:55)
[2018-04-26] MEDS: DIVALPROEX SODIUM 500 MG TABLET E.C. PO SCH ×2 (09:47→21:31)
[2018-04-26] MEDS: THIAMINE HCL 100 MG TABLET (FP) PO SCH (21:30)
[2018-04-26] MEDS: RANITIDINE HCL 150 MG TABLET (FP) PO SCH (21:30)
[2018-04-26] MEDS: MIRTAZAPINE 15 MG TABLET (FP) PO SCH (21:31)
[2018-04-26] MEDS: SUVOREXANT 10 MG TABLET PO PRN (21:31)
[2018-04-26] MEDS: QUEtiapine FUMARATE 100 MG TABLET (FP) PO SCH (21:31)
[2018-04-26] MEDS: hydrOXYzine PAMOATE 50 MG CAPSULE (FP) PO PRN (21:31)
[2018-04-27] MEDS: PRENATAL VITAMINS W/ FOLIC ACID TABLET (FP) PO SCH (10:19)
[2018-04-27] MEDS: risperiDONE 2 MG TABLET PO SCH ×2 (10:21→21:17)
[2018-04-27] MEDS: QUEtiapine FUMARATE 50 MG TABLET PO SCH ×2 (10:21→16:47)
[2018-04-27] MEDS: DIVALPROEX SODIUM 500 MG TABLET E.C. PO SCH ×2 (10:21→21:17)
[2018-04-27] MEDS: METHADONE HCL 40 MG DISPERSABLE TABLET PO SCH (10:22)
[2018-04-27] MEDS: NICOTINE 14 MG/24 HOURS TOPICAL PATCH TD SCH (10:24)
[2018-04-27] MEDS: IBUPROFEN 400 MG TABLET (FP) PO PRN ×2 (10:25→16:47)
[2018-04-27] MEDS: NICOTINE POLACRILEX 4 MG GUM BUC PRN (16:45)
[2018-04-27] MEDS: THIAMINE HCL 100 MG TABLET (FP) PO SCH (21:16)
[2018-04-27] MEDS: RANITIDINE HCL 150 MG TABLET (FP) PO SCH (21:17)
[2018-04-27] MEDS: QUEtiapine FUMARATE 100 MG TABLET (FP) PO SCH (21:17)
[2018-04-27] MEDS: MIRTAZAPINE 15 MG TABLET (FP) PO SCH (21:18)
[2018-04-27] MEDS: SUVOREXANT 10 MG TABLET PO PRN (21:19)
[2018-04-28] MEDS: risperiDONE 2 MG TABLET PO SCH ×2 (10:15→21:25)
[2018-04-28] MEDS: QUEtiapine FUMARATE 50 MG TABLET PO SCH ×2 (10:15→16:35)
[2018-04-28] MEDS: PRENATAL VITAMINS W/ FOLIC ACID TABLET (FP) PO SCH (10:15)
[2018-04-28] MEDS: NICOTINE 14 MG/24 HOURS TOPICAL PATCH TD SCH (10:15)
[2018-04-28] MEDS: DIVALPROEX SODIUM 500 MG TABLET E.C. PO SCH ×2 (10:15→21:25)
[2018-04-28] MEDS ORDERED: METHADONE HCL 40 MG DISPERSABLE TABLET PO ONE (11:13)
--- NOTE | 2018-04-28 11:17 | PN ---
S Progress Note Note: METHADONE RENEWED METHADONE 120 MG PO NOW THEN DAILY AT 0600 .
[2018-04-28] MEDS: QUEtiapine FUMARATE 100 MG TABLET (FP) PO SCH (21:25)
[2018-04-28] MEDS: RANITIDINE HCL 150 MG TABLET (FP) PO SCH (21:25)
[2018-04-28] MEDS: SUVOREXANT 10 MG TABLET PO PRN (21:25)
[2018-04-28] MEDS: THIAMINE HCL 100 MG TABLET (FP) PO SCH (21:25)
[2018-04-28] MEDS: MIRTAZAPINE 15 MG TABLET (FP) PO SCH (21:25)
[2018-04-29] MEDS ORDERED: METHADONE HCL 40 MG DISPERSABLE TABLET PO SCH (06:00)
[2018-04-29] MEDS: NICOTINE 14 MG/24 HOURS TOPICAL PATCH TD SCH (10:05)
[2018-04-29] MEDS: risperiDONE 2 MG TABLET PO SCH ×2 (10:05→21:06)
[2018-04-29] MEDS: PRENATAL VITAMINS W/ FOLIC ACID TABLET (FP) PO SCH (10:05)
[2018-04-29] MEDS: DIVALPROEX SODIUM 500 MG TABLET E.C. PO SCH ×2 (10:05→21:06)
[2018-04-29] MEDS: QUEtiapine FUMARATE 50 MG TABLET PO SCH ×2 (10:05→16:51)
[2018-04-29] MEDS: NICOTINE POLACRILEX 4 MG GUM BUC PRN (10:07)
[2018-04-29] MEDS: QUEtiapine FUMARATE 100 MG TABLET (FP) PO SCH (21:06)
[2018-04-29] MEDS: MIRTAZAPINE 15 MG TABLET (FP) PO SCH (21:06)
[2018-04-29] MEDS: THIAMINE HCL 100 MG TABLET (FP) PO SCH (21:06)
[2018-04-29] MEDS: RANITIDINE HCL 150 MG TABLET (FP) PO SCH (21:06)
[2018-04-29] MEDS: SUVOREXANT 10 MG TABLET PO PRN (21:06)
[2018-04-30] MEDS: METHADONE HCL 40 MG DISPERSABLE TABLET PO SCH (10:10)
[2018-04-30] MEDS: DIVALPROEX SODIUM 500 MG TABLET E.C. PO SCH ×2 (10:11→21:17)
[2018-04-30] MEDS: NICOTINE 14 MG/24 HOURS TOPICAL PATCH TD SCH (10:11)
[2018-04-30] MEDS: risperiDONE 2 MG TABLET PO SCH ×2 (10:11→21:17)
[2018-04-30] MEDS: PRENATAL VITAMINS W/ FOLIC ACID TABLET (FP) PO SCH (10:11)
[2018-04-30] MEDS: QUEtiapine FUMARATE 50 MG TABLET PO SCH ×2 (10:14→16:53)
--- NOTE | 2018-04-30 10:34 | PN ---
[facility] Progress Note Note: PATIENT FOR DISCHARGE ON 05/03/18 TO [facility] OUTPATIENT PROGRAM. PATIENT WILL FOLLOW UP WITH [facility] METHADONE PROGRAM FOR ONGOING MTD TREATMENT. PATIENT STATES HE ACCOMPLISHED ALL GOALS IN REHAB AND DENIES SI/HI. PATIENT IS MEDICALLY STABLE AT THIS TIME AND IS CLEARED FOR DISCHARGE SCHEDULED. PATIENT SENT ZANTAC TO PREFERRED PHARMACY. Vital Signs Temperature 97.8 F 04/29/18 06:55 Pulse Rate 96 H 04/29/18 06:55 Respiratory Rate 18 04/30/18 03:30 Blood Pressure 117/66 04/29/18 06:55 O2 Sat by Pulse Oximetry (%)
[2018-04-30] MEDS: IBUPROFEN 400 MG TABLET (FP) PO PRN (15:37)
[2018-04-30] MEDS: THIAMINE HCL 100 MG TABLET (FP) PO SCH (21:16)
[2018-04-30] MEDS: RANITIDINE HCL 150 MG TABLET (FP) PO SCH (21:16)
[2018-04-30] MEDS: MIRTAZAPINE 15 MG TABLET (FP) PO SCH (21:16)
[2018-04-30] MEDS: QUEtiapine FUMARATE 100 MG TABLET (FP) PO SCH (21:16)
[2018-04-30] MEDS: SUVOREXANT 10 MG TABLET PO PRN (21:17)
[2018-04-30] MEDS: NICOTINE POLACRILEX 4 MG GUM BUC PRN (21:18)
[2018-05-01] MEDS: DIVALPROEX SODIUM 500 MG TABLET E.C. PO SCH ×2 (10:29→21:01)
[2018-05-01] MEDS: risperiDONE 2 MG TABLET PO SCH ×2 (10:29→21:01)
[2018-05-01] MEDS: QUEtiapine FUMARATE 50 MG TABLET PO SCH ×2 (10:29→16:40)
[2018-05-01] MEDS: METHADONE HCL 40 MG DISPERSABLE TABLET PO SCH (10:30)
[2018-05-01] MEDS: NICOTINE POLACRILEX 4 MG GUM BUC PRN ×4 (10:32→21:03)
[2018-05-01] MEDS: PRENATAL VITAMINS W/ FOLIC ACID TABLET (FP) PO SCH (10:33)
[2018-05-01] MEDS: NICOTINE 14 MG/24 HOURS TOPICAL PATCH TD SCH (10:33)
[2018-05-01] MEDS: MIRTAZAPINE 15 MG TABLET (FP) PO SCH (21:01)
[2018-05-01] MEDS: RANITIDINE HCL 150 MG TABLET (FP) PO SCH (21:01)
[2018-05-01] MEDS: SUVOREXANT 10 MG TABLET PO PRN (21:01)
[2018-05-01] MEDS: THIAMINE HCL 100 MG TABLET (FP) PO SCH (21:01)
[2018-05-01] MEDS: QUEtiapine FUMARATE 100 MG TABLET (FP) PO SCH (21:01)
[2018-05-02] MEDS: QUEtiapine FUMARATE 50 MG TABLET PO SCH ×2 (10:18→17:25)
[2018-05-02] MEDS: PRENATAL VITAMINS W/ FOLIC ACID TABLET (FP) PO SCH (10:18)
[2018-05-02] MEDS: DIVALPROEX SODIUM 500 MG TABLET E.C. PO SCH ×2 (10:18→21:00)
[2018-05-02] MEDS: METHADONE HCL 40 MG DISPERSABLE TABLET PO SCH (10:18)
[2018-05-02] MEDS: NICOTINE 14 MG/24 HOURS TOPICAL PATCH TD SCH (10:18)
[2018-05-02] MEDS: risperiDONE 2 MG TABLET PO SCH ×2 (10:19→21:01)
[2018-05-02] MEDS: NICOTINE POLACRILEX 4 MG GUM BUC PRN ×4 (10:20→21:04)
[2018-05-02] MEDS: IBUPROFEN 400 MG TABLET (FP) PO PRN (17:27)
[2018-05-02] MEDS: RANITIDINE HCL 150 MG TABLET (FP) PO SCH (21:00)
[2018-05-02] MEDS: MIRTAZAPINE 15 MG TABLET (FP) PO SCH (21:00)
[2018-05-02] MEDS: THIAMINE HCL 100 MG TABLET (FP) PO SCH (21:00)
[2018-05-02] MEDS: QUEtiapine FUMARATE 100 MG TABLET (FP) PO SCH (21:01)
[2018-05-02] MEDS: SUVOREXANT 10 MG TABLET PO PRN (21:02)
[2018-05-02] MEDS ORDERED: SUVOREXANT 10 MG TABLET PO PRN (22:00)
[2018-05-03] MEDS: NICOTINE POLACRILEX 4 MG GUM BUC PRN (06:28)
[2018-05-03] MEDS: risperiDONE 2 MG TABLET PO SCH (06:40)
[2018-05-03] MEDS: DIVALPROEX SODIUM 500 MG TABLET E.C. PO SCH (06:40)
[2018-05-03] MEDS: QUEtiapine FUMARATE 50 MG TABLET PO SCH (06:41)
[2018-05-03 06:57] VITALS: BP 102/68; PULSE 87; TEMP 97
== END 2018-05-03 07:00 | disposition home or self-care (01) | DRG 772 ==
LOC: YASAS 11:35 → Y3W 13:22
PROVIDERS: ADMIT Psychiatry & Neurology Psychiatry; ATTEND Psychiatry & Neurology Psychiatry
PROC: HZ42ZZZ Group Counseling for Substance Abuse Treatment, Cognitive-Behavioral (ICD-10-PCS; principal; 2018-04-05)
DX: F11.20 Opioid dependence, uncomplicated (principal); F14.20 Cocaine dependence, uncomplicated; F12.20 Cannabis dependence, uncomplicated; F17.210 Nicotine dependence, cigarettes, uncomplicated; F25.9 Schizoaffective disorder, unspecified; F39 Unspecified mood [affective] disorder; F41.9 Anxiety disorder, unspecified; F32.9 Major depressive disorder, single episode, unspecified; R21 Rash and other nonspecific skin eruption; K08.89 Other specified disorders of teeth and supporting structures
CPT/HCPCS: 36415; 80053; 81003; 82962; 85027; 86593; 87389